=== PATIENT | female | born 1980 | race Two or more races ===

== ENCOUNTER 2019-04-08 09:14 | Emergency (ER) | payer MEDICAID ==
[~2019-04-08] VITALS: Ht 157.5 cm; Wt 61.2 kg
[2019-04-08 10:17] LABS: Basophils # (auto) 0 uL; Eosinophils # (auto) 0.1 uL; Eosinophils % (auto) 2.5 % (0.0-7.0); Hematocrit 37.5 % (36.0-46.0); Hemoglobin 12.2 g/dL (12.2-16.2); Lymphocytes # (auto) 1.3 uL; Mean Corpuscular Hemoglobin 27.4 pg (28.0-32.0); Mean Corpuscular Hgb Conc. 32.5 g/dL (32.0-36.0); Mean Corpuscular Volume 84.1 fL (80.0-100.0); Monocytes # (auto) 0.2 uL; Monocytes % (auto) 3.3 % (0.0-12.0); Neutrophils # (auto) 3.4 uL; Neutrophils % (auto) 68.2 % (37.0-80.0); Nucleated Red Blood Cells % 0.1 %; Platelet Count (auto) 281 10^3/uL (140-450); Red Blood Cells 4.46 10^6/uL (4.0-5.20); Red Cell Distribution Width 15.6 % (11.8-14.3); White Blood Cell 5.1 10^3/uL (4.4-10.8)
[2019-04-08 10:28] LABS: Potassium 3.9 mmol/L (3.5-5.1)
[2019-04-08 10:38] LABS: BUN/Creatinine Ratio 14.3; Bilirubin, Total 0.4 mg/dL (0.2-1.0); Calcium 8.8 mg/dL (8.5-10.1); Total Protein 7.8 g/dL (6.4-8.2)
[2019-04-08 13:28] LABS: Urine Bacteria NONE SEEN /hpf (None Seen); Urine Blood Negative /uL (Negative); Urine Specific Gravity 1.004 (1.001-1.035); Urine WBC <1 /hpf (0 - 5)
[2019-04-08 16:00] VITALS: BP 102/64
== END 2019-04-08 16:11 | disposition home or self-care (01) ==
LOC: ER 09:14
DX: K64.9 Unspecified hemorrhoids (principal)
CPT/HCPCS: 36415; 74176; 80053; 81001; 81025; 85025

== ENCOUNTER 2019-05-24 11:43 | Emergency (ER) | payer SELFPAY ==
[~2019-05-24] VITALS: Ht 157.5 cm; Wt 61.2 kg
[2019-05-24 12:04] LABS: Urine WBC None Seen /hpf (0 - 5)
[2019-05-24 12:30] VITALS: BP 101/53
[2019-05-24 12:41] LABS: Urine Bacteria NONE SEEN /hpf (None Seen); Urine Blood Negative /uL (Negative); Urine Specific Gravity 1.012 (1.001-1.035)
[2019-05-24] MEDS ORDERED: KETOROLAC TROMETH 60MG/2ML VIAL IM ONE (12:45)
== END 2019-05-24 13:37 | disposition home or self-care (01) ==
LOC: ER 11:56
DX: M54.5 Low back pain (principal)
CPT/HCPCS: 81001; 96372; 99283; J1885

== ENCOUNTER 2021-01-08 09:56 | Emergency (ER) | payer SELFPAY ==
[~2021-01-08] VITALS: Ht 157.5 cm; Wt 63.5 kg
[2021-01-08 09:59] VITALS: BP 119/71
[2021-01-08 10:48] LABS: Urine Bacteria FEW /hpf (None Seen); Urine Blood Negative /uL (Negative); Urine Specific Gravity 1.008 (1.001-1.035); Urine WBC <1 /hpf (0 - 5)
== END 2021-01-08 11:27 | disposition home or self-care (01) ==
LOC: ER 09:56
DX: N39.0 Urinary tract infection, site not specified (principal); N76.0 Acute vaginitis; Z87.442 Personal history of urinary calculi
CPT/HCPCS: 81001